=== PATIENT | male | born 1950 | race Asian ===

== ENCOUNTER → 2018-10-03 08:57 | Outpatient (CLI) | payer MEDICARE, OTHER, SELFPAY ==
--- NOTE | 2018-10-03 | DI.US.S_ITS ---
PROCEDURE: US ABDOMEN LIMITED INDICATIONS: NONALCOHOLIC STEATOHEPATITIS TECHNIQUE: Real-time focused scanning was performed of the abdomen, with image documentation. COMPARISON: None. FINDINGS: Liver measures 13.8 in length. There is heterogeneous, coarse echotexture. Multiple hepatic cysts are seen in the left lobe measuring up to 8 x 7 x 6 mm although technically too small to characterize. Gallbladder surgically absent. No biliary ductal dilatation. The pancreas is not well seen sonographically due to shadowing bowel gas. IMPRESSION: Coarse echogenic liver suggesting diffuse hepatocellular disease/fatty infiltration. Please correlate with LFTs. Hepatic cysts. Status post cholecystectomy. Dictated by: Dion Peraza M.D. on 10/03/2018 at 10:16 Approved by: Dion Peraza M.D. on 10/03/2018 at 10:20
== END ==
PROVIDERS: PCP Naturopath; Visit Provider Naturopath
DX: K75.81 Nonalcoholic steatohepatitis (NASH) (principal); K76.89 Other specified diseases of liver; Z90.49 Acquired absence of other specified parts of digestive tract
CPT/HCPCS: 76705

== ENCOUNTER → 2019-03-20 10:52 | Outpatient (CLI) | payer MEDICARE, OTHER, SELFPAY ==
--- NOTE | 2019-03-20 | DI.MRI.S_ITS ---
PROCEDURE: MR LUMBAR SPINE WO CON INDICATIONS: Spondylolisthesis, lumbar region TECHNIQUE: Noncontrast sagittal T1 spin echo and T2 fast echo, sagittal STIR, axial T1 and T2 fast spin echo through the lumbar spine. In cases with scoliosis, additional coronal T2 fast spin echo may be performed. COMPARISON: None. FINDINGS: Image quality: Excellent. Alignment and Curvature: There is grade I L4 on L5 anterolisthesis. There is otherwise normal bony alignment. Bone Marrow: Marrow is of normal overall signal. No acute vertebral body compression fractures. Spinal Cord: Conus medullaris terminates at the T12 level. Visualized cord demonstrates normal signal and size. Paraspinous Soft Tissues: No paravertebral masses. L1-L2: Normal appearance. L2-L3: Normal appearance. L3-L4: Mild disc bulge. No canal stenosis. No foraminal stenosis. L4-L5: Mild anterolisthesis. Mild disc desiccation and height loss. Broad-based disc bulge. Moderate facet and ligamentum flavum hypertrophy. Moderate canal stenosis. Mild bilateral neuroforaminal narrowing. L5-S1: Normal appearance. IMPRESSION: 1. Mild disc desiccation, anterolisthesis, and disc bulge at L4-5 with resultant moderate canal stenosis and mild foraminal stenosis. Dictated by: Lucia Dawson M.D. on 03/20/2019 at 13:50 Approved by: Lucia Dawson M.D. on 03/20/2019 at 14:04
== END ==
PROVIDERS: PCP Naturopath; Visit Provider Orthopaedic Surgery Orthopaedic Surgery of the Spine
DX: M43.16 Spondylolisthesis, lumbar region (principal); M51.26 Other intervertebral disc displacement, lumbar region; M48.061 Spinal stenosis, lumbar region without neurogenic claudication
CPT/HCPCS: 72148

== ENCOUNTER → 2019-12-08 10:34 | Outpatient (CLI) | payer MEDICARE, OTHER, SELFPAY ==
--- NOTE | 2019-12-08 | DI.US.S_ITS ---
PROCEDURE: US ABDOMEN COMPLETE INDICATIONS: CIRRHOSIS TECHNIQUE: Real-time scanning was performed of the abdominal and retroperitoneal organs, with image documentation. COMPARISON: [facility], , US ABDOMEN LIMITED, 10/03/2018, 9:28. FINDINGS: Liver: The liver demonstrates normal size. The liver demonstrates generalized increased echogenicity, with generalized heterogeneity. This decreases ultrasound sensitivity for detection of hepatic masses. The main portal vein measures 1.2 cm and is patent. There is a 9 mm cyst seen on the left. The previously seen liver cysts elsewhere are not visible on the current study. Gallbladder: Removed. Biliary ducts: Intrahepatic bile ducts are non-dilated. Extrahepatic bile duct caliber measures 4-5 mm. Normal is 6-7 mm or less in diameter, or 10 mm or less post-cholecystectomy. Pancreas: Visualized portions of the pancreas are sonographically normal. Spleen: Spleen is normal in size and homogeneous in echotexture. Kidneys: Kidneys are normal in size and echotexture. Right kidney measures 10.5 cm long; left kidney measures 11.2 cm long. No hydronephrosis or nephrolithiasis. No solid masses. There is a simple cyst seen on the right inferiorly that measures up to 1.7 cm. Aorta: Visualized aorta is normal in caliber at less than 3 cm. Iliacs: Proximal common iliac arteries are normal in caliber at less than 2.5 cm. IVC: Intrahepatic inferior vena cava is patent. Miscellaneous: No free abdominal fluid. IMPRESSION: Heterogeneous liver with increased echogenicity, which is consistent with the given clinical history of cirrhosis. If it would be helpful for clinical management decision making, please consider a dedicated liver MRI for further evaluation (assuming that there is no contraindication). Dictated by: Edgar Lopez M.D. on 12/08/2019 at 12:19 Approved by: Edgar Lopez M.D. on 12/08/2019 at 12:21
== END ==
PROVIDERS: PCP Naturopath; Referring Provider Naturopath; Visit Provider Internal Medicine Gastroenterology
DX: K74.69 Other cirrhosis of liver (principal); R74.8 Abnormal levels of other serum enzymes; N28.1 Cyst of kidney, acquired; R94.5 Abnormal results of liver function studies; Z90.49 Acquired absence of other specified parts of digestive tract
CPT/HCPCS: 76700

== ENCOUNTER 2021-10-17 08:23 | Observation (INO) | payer MEDICARE, OTHER, SELFPAY ==
[2021-10-17] VITALS (11 sets, daily range): BP systolic 111–140; BP diastolic 47–90; PULSE 60–109; RESP 16–24; TEMP 36.4–37.1; O2SAT 93–100; BMI 23.3; BMI 22.9
--- NOTE | 2021-10-17 08:37 | DI.RAD.S_ITS ---
PROCEDURE: XR CHEST 1V INDICATIONS: chest pain TECHNIQUE: One view of the chest was acquired. COMPARISON: None. FINDINGS: Surgical changes and devices: None. Lungs and pleura: Lungs are clear. No pleural effusions or pneumothorax. Mediastinum: Aortic arch calcifications are seen. Heart size is mildly enlarged. Bones and chest wall: No suspicious bony lesions. Overlying soft tissues appear unremarkable. IMPRESSION: No focal infiltrate, pleural effusion or pneumothorax. Dictated by: Marquise Childs M.D. on 10/17/2021 at 9:00 Approved by: Marquise Childs M.D. on 10/17/2021 at 9:03
[2021-10-17 09:31] LABS: Add Manual Diff / Slide Review NO; Basophils Absolute Auto 100 /uL (0-100); Basophils Percent Auto 0.8 % (0-2); Eosinophils Absolute Auto 100 /uL (0-450); Hematocrit 29.9 % (41-53); Hemoglobin 9.9 g/dL (13.5-17.5); Lymphocytes Absolute Auto 700 /uL (1100-4500); Lymphocytes Percent Auto 9.9 % (25-40); Mean Corpuscular HGB Conc 33.2 % (30-36); Mean Corpuscular Hemoglobin 31.1 PG (26-34); Mean Corpuscular Volume 93.5 fL (80-100); Monocytes Absolute Auto 400 /uL (0-900); Neutrophils Absolute Auto 5400 /uL (1500-7000); Neutrophils Percent Auto 81.3 % (50-75); Platelet Count 60 X10^3/uL (150-400); Red Blood Cell Count 3.19 X10^6/uL (4.5-5.9); Red Cell Distribution Width 17.4 % (11.6-14.8); White Blood Cell Count 6.7 X10^3/uL (4.5-11.0)
[2021-10-17] MEDS: ONDANSETRON 4 MG/2 ML INJ IV (09:37)
[2021-10-17] MEDS: SODIUM CHLORIDE 0.9% 1,000 ML 1000 ML IV (09:37)
[2021-10-17] MEDS: PANTOPRAZOLE 40 MG VIAL 80 MG IV (09:38)
[2021-10-17 09:54] LABS: Alanine Aminotransferase 35 IU/L (<50); Albumin 3.1 g/dL (3.5-5.0); Albumin Globulin Ratio 0.9 (1.0-2.8); Alkaline Phosphatase 204 U/L (38-126); Aspartate Aminotransferase 41 IU/L (17-59); BUN Creatinine Ratio 30.8 (6-22); Bilirubin Total 0.8 mg/dL (0.2-1.3); Blood Urea Nitrogen 36 mg/dL (9-20); Calcium 8.9 mg/dL (8.4-10.2); Carbon Dioxide 28 mmol/L (22-32); Chloride 107 mmol/L (98-107); Creatine Kinase 57 U/L (55-170); Estimated Glomerular Filt Rate > 60 mL/min (>60); Globulin 3.6 g/dL (1.7-4.1); Glucose 108 mg/dL (80-110); HEMOLYSIS < 15 (0-50); Lipase 291 U/L (23-300); Potassium 5.2 mmol/L (3.4-5.1); Sodium 138 mmol/L (137-145); Total Protein 6.7 g/dL (6.3-8.2)
[2021-10-17 10:05] LABS: Troponin I < 0.012 ng/mL (0.01-0.034)
[2021-10-17 10:11] LABS: COVID19 -Nasal RAPID Negative (Negative)
--- NOTE | 2021-10-17 10:52 | ED_ITS ---
HPI - General Adult General Chief complaint: Dizziness Stated complaint: Dizzy, bloody stool, hx of GI bleeds Time Seen by Provider: 10/17/21 08:27 Source: patient Mode of arrival: Family Vehicle History of Present Illness HPI narrative: 71-year-old gentleman with a prior history of a duodenal bleeding at least 7 or 8 times in the past most recently in 2018 with endoscopy that was unremarkable at that time. Additional problems include hypertension and hyperlipidemia. Notes that he has been increasingly lightheaded over the last number of days and this morning was significant enough that he had a near syncopal episode when he went to have a bowel movement. He describes no abdominal pain or vomiting but he notes his bowel movement was black this morning. He is having no additional pain. This has been his presentation with prior upper GI bleeds. He notes that he has not taken any new medications is not using nonsteroidals. He has no complaints of dyspnea, orthopnea, chest pain, headache, lower extremity edema, palpitations. Related Data Home Medications Medication Instructions Recorded Confirmed carvedilol phosphate 40 mg 40 mg PO QDAY ##0 03/27/17 10/17/21 capsule,[id number] multiphase (Coreg CR) pantoprazole 40 mg granules 40 mg PO BID ##0 03/27/17 10/17/21 delayed-release for susp in packet (Protonix) pravastatin 40 mg tablet 40 mg PO HS ##0 03/27/17 10/17/21 (Pravachol) spironolactone 25 mg tablet 25 mg PO 3XW ##0 03/27/17 10/17/21 (Aldactone) losartan 50 mg tablet 50 mg PO BID 07/21/20 10/17/21 Previous Rx's Medication Instructions Recorded alfuzosin 10 mg tablet,extended 10 mg PO DAILY #90 tabs 07/21/20 release 24 hr (Uroxatral) Allergies Allergy/AdvReac Type Severity Reaction Status Date / Time quinapril [QUINAPRIL] Allergy Unknown Verified 10/17/21 08:45 Review of Systems Review of Systems Narrative: Remainder of complete review of systems is otherwise unremarkable except for that included in the HPI. Patient History Medical History BPH w urinary obs/LUTS Erectile dysfunction Hyperlipidemia Hypertension Upper GI bleed Surgical History History of back surgery History of cholecystectomy History of tonsillectomy Family History Father Hypertension Hyperlipidemia Social History household members: spouse Smoking Status: Never smoker alcohol intake: never Smoking Status: Never smoker alcohol intake frequency: 0-2 drinks per day Substance Use Type: does not use Exam Initial Vital Signs Initial Vital Signs: Vital Signs Temperature 97.6 F 10/17/21 08:38 Pulse Rate 89 10/17/21 08:38 Respiratory Rate 19 10/17/21 08:38 Blood Pressure 129/64 10/17/21 08:38 Pulse Oximetry 99 10/17/21 08:38 Oxygen Delivery Method 10/17/21 08:38 General: Healthy appearing, in no acute distress. Able to give a complete and coherent history. Well-nourished well-developed HEENT: Moist mucous membranes, normal sclera with reactive pupils, Neck: No JVD, supple Respiratory: Lungs are clear to auscultation, no wheezing no rales no rhonchi. Full and symmetrical air movement Cardiac: Regular rate and rhythm no murmurs no bruits Abdomen: Soft, mild epigastric tenderness without rebound or guarding, good bowel tones, no flank pain Skin: Warm and dry, no rashes Neurologic: Grossly neurologically intact with no obvious asymmetries or abnormalities Extremities: No trauma, well perfused Psych: Cooperative, appropriate insight and affect Course Orders Ordered: ED Orders 10/17/21 12:11 Consult to General Surgery Stat 10/17/21 12:44 Hemoglobin and Hematocrit Stat 10/18/21 05:00 Basic Metabolic Panel Routine Complete Blood Count AUTO DIFF Routine Acetaminophen (Acetaminophen 325 Mg Tablet) 650 mg PO Q6HR PRN PRN Reason: Fever/Mild Pain (1-3) Alfuzosin [Uroxatral ] 10 Mg Tablet Extended Release 24 Hr 10 mg PO DAILY KIYA Ondansetron HCl (Ondansetron 4 Mg/2 Ml Inj) 4 mg IV Q8HR PRN PRN Reason: Nausea And Vomiting Pantoprazole Sodium (Pantoprazole 40 Mg Vial) 40 mg IV BID KIYA Sodium Chloride (Sodium Chloride 0.9% Flush) 10 ml IV PRN PRN PRN Reason: Flush Sodium Chloride (Sodium Chloride 0.9% Flush) 10 ml IV BID KIYA Discontinued Medications Sodium Chloride (Normal Saline 0.9%) 1,000 mls @ 1,000 mls/hr IV BOLUS ONE Stop: 10/17/21 10:30 Last Infusion: 10/17/21 11:22 Dose: 0 mls/hr Documented By: Admin: 10/17/21 09:37 Dose: 1,000 mls/hr Documented By: NR Ondansetron HCl (Ondansetron 4 Mg/2 Ml Inj) 4 mg IV NOW ONE Stop: 10/17/21 09:32 Last Admin: 10/17/21 09:37 Dose: 4 mg Documented By: NR Pantoprazole Sodium (Pantoprazole 40 Mg Vial) 80 mg IV NOW ONE Stop: 10/17/21 09:32 Last Admin: 10/17/21 09:38 Dose: 80 mg Documented By: NR Vital Signs Vital signs: Vital Signs - 8 hr 10/17/21 11:22 10/17/21 11:30 10/17/21 11:31 Pulse Rate 89 94 H Respiratory Rate 18 24 Blood Pressure 140/67 Pulse Oximetry 100 93 10/17/21 11:31 10/17/21 12:00 10/17/21 12:01 Pulse Rate 90 84 Respiratory Rate 19 18 Blood Pressure 122/53 L Pulse Oximetry 100 100 10/17/21 12:01 10/17/21 12:30 10/17/21 12:30 Pulse Rate 86 87 Respiratory Rate 19 18 Blood Pressure 111/61 Pulse Oximetry 100 100 Medical Decision Making Lab Data Result diagrams: 10/17/21 18:00 10/17/21 09:21 Labs: Lab Results 10/17/21 10/17/21 10/17/21 Range/Units 09:21 09:21 09:21 WBC 6.7 (4.5-11.0) X10^3/uL RBC 3.19 L (4.5-5.9) X10^6/uL Hgb 9.9 L (13.5-17.5) g/dL Hct 29.9 L (41-53) % MCV 93.5 (80-100) fL MCH 31.1 (26-34) PG MCHC 33.2 (30-36) % RDW 17.4 H (11.6-14.8) % Plt Count 60 L (150-400) X10^3/uL Neut % (Auto) 81.3 H (50-75) % Lymph % (Auto) 9.9 L (25-40) % [place] % (Auto) 6.0 (3-14) % Eos % (Auto) 2.0 (2-4) % Baso % (Auto) 0.8 (0-2) % Neut # (Auto) 5400 (3630-6633) /uL Lymph # (Auto) 700 L (2844-8163) /uL [place] # (Auto) 400 (0-900) /uL Eos # (Auto) 100 (0-450) /uL Baso # (Auto) 100 (0-100) /uL Sodium 138 (137-145) mmol/L Potassium 5.2 H (3.4-5.1) mmol/L Chloride 107 (98-107) mmol/L Carbon Dioxide 28 (22-32) mmol/L BUN 36 H (9-20) mg/dL Creatinine 1.17 (0.66-1.25) mg/dL Estimated GFR > 60 (>60) mL/min BUN/Creatinine Ratio 30.8 H (6-22) Glucose 108 (80-110) mg/dL Calcium 8.9 (8.4-10.2) mg/dL Magnesium 2.0 (1.6-2.3) mg/dL Total Bilirubin 0.8 (0.2-1.3) mg/dL AST 41 (17-59) IU/L ALT 35 (<50) IU/L Alkaline Phosphatase 204 H (38-126) U/L Total Creatine Kinase 57 (55-170) U/L CK-MB (CK-2) TNP CK-MB (CK-2) Rel Index TNP Troponin I < 0.012 (0.01-0.034) ng/mL Total Protein 6.7 (6.3-8.2) g/dL Albumin 3.1 L (3.5-5.0) g/dL Globulin 3.6 (1.7-4.1) g/dL Albumin/Globulin Ratio 0.9 L (1.0-2.8) Lipase 291 (23-300) U/L Urine RBC (0-5/HPF) Urine WBC (0-5/HPF) Ur Squamous Epith Cells (0-5/HPF) Urine Bacteria (None) Ur Culture Indicated? SARS-CoV-2 (PCR) (Negative) Blood Type O Positive Antibody Screen Negative 10/17/21 10/17/21 Range/Units 09:21 11:30 WBC (4.5-11.0) X10^3/uL RBC (4.5-5.9) X10^6/uL Hgb (13.5-17.5) g/dL Hct (41-53) % MCV (80-100) fL MCH (26-34) PG MCHC (30-36) % RDW (11.6-14.8) % Plt Count (150-400) X10^3/uL Neut % (Auto) (50-75) % Lymph % (Auto) (25-40) % [place] % (Auto) (3-14) % Eos % (Auto) (2-4) % Baso % (Auto) (0-2) % Neut # (Auto) (8183-3189) /uL Lymph # (Auto) (2823-8110) /uL [place] # (Auto) (0-900) /uL Eos # (Auto) (0-450) /uL Baso # (Auto) (0-100) /uL Sodium (137-145) mmol/L Potassium (3.4-5.1) mmol/L Chloride (98-107) mmol/L Carbon Dioxide (22-32) mmol/L BUN (9-20) mg/dL Creatinine (0.66-1.25) mg/dL Estimated GFR (>60) mL/min BUN/Creatinine Ratio (6-22) Glucose (80-110) mg/dL Calcium (8.4-10.2) mg/dL Magnesium (1.6-2.3) mg/dL Total Bilirubin (0.2-1.3) mg/dL AST (17-59) IU/L ALT (<50) IU/L Alkaline Phosphatase (38-126) U/L Total Creatine Kinase (55-170) U/L CK-MB (CK-2) CK-MB (CK-2) Rel Index Troponin I (0.01-0.034) ng/mL Total Protein (6.3-8.2) g/dL Albumin (3.5-5.0) g/dL Globulin (1.7-4.1) g/dL Albumin/Globulin Ratio (1.0-2.8) Lipase (23-300) U/L Urine RBC 5-10/hpf H (0-5/HPF) Urine WBC 10-30/hpf H (0-5/HPF) Ur Squamous Epith Cells 0-1 /hpf (0-5/HPF) Urine Bacteria Few (2-10) H (None) Ur Culture Indicated? Specimen cultured SARS-CoV-2 (PCR) Negative (Negative) Blood Type Antibody Screen Urine Dip Bedside Urine Glucose Negative Bedside Urine Bilirubin - Negative Bedside Urine Ketone - Negative Urine Specific [place] 1.015 Bedside Urine Occult Blood +++ Bedside Urine pH 6.0 Bedside Urine Protein - Negative Bedside Urine Urobilinogen - Negative Bedside Urine Nitrite - Negative Bedside Urine Leukocytes - Negative Esterase Point of care testing: Urine Dip Bedside Urine Glucose Negative Bedside Urine Bilirubin - Negative Bedside Urine Ketone - Negative Urine Specific [place] 1.015 Bedside Urine Occult Blood +++ Bedside Urine pH 6.0 Bedside Urine Protein - Negative Bedside Urine Urobilinogen - Negative Bedside Urine Nitrite - Negative Bedside Urine Leukocytes - Negative Esterase ECG Data Interpretation: Sinus rhythm at 94 with frequent PVCs Left bundle branch block MDM Narrative Medical decision making narrative: 71-year-old gentleman with prior history of upper GI bleeding currently on proton pump inhibitor and history of thrombocytopenia presents with black stools and increasing dizziness. Outside lab on October 10 shows an H&H of 11.9 and 35.8 with platelets of 62. Creatinine was 1.1. Today's H&H is 9.9 in 29.9 consistent with his complaints of presumed upper GI bleeding with black stool appreciated this morning. Platelet count is 60. He is not otherwise anticoagulated. Will review care with General surgery and plan on admission to the hospitalist service for upper GI bleed and need for probable endoscopy and possible blood transfusion. He is feeling significantly improved after L of fluid. Care is reviewed with hospitalist and patient will be admitted for further care and evaluation Discharge Plan Departure Patient Disposition: Admitted As Inpatient Clinical Impression: Acute upper gastrointestinal bleeding, Near syncope, ABLA (acute blood loss anemia) Admit Date/Time: 10/17/21 12:31 Admit Provider: Real Reagan
[2021-10-17 12:56] LABS: Hematocrit 26.7 % (41-53); Hemoglobin 8.9 g/dL (13.5-17.5)
[2021-10-17 13:45] LABS: Bacteria Urine Few (2-10); Culture Indicated Urine Specimen Cultured; RBC Urine 5-10/HPF (0-5/HPF); Squamous Epithelial Cell Urine 0-1 /HPF (0-5/HPF); WBC Urine 10-30/HPF (0-5/HPF)
--- NOTE | 2021-10-17 18:20 | PM.HP.1 ---
History of Present Illness History of Present Illness Date Patient Seen: 10/17/21 Time Patient Seen: 18:00 Chief complaint: Dizzy, bloody stool, hx of GI bleeds Narrative: Mr. Sultana is a 71M with PMH duodenal bleeding multiple times s/p cautery, possibly from [place]ul[place] lesion, HTN, HL, cardiomyopathy, BPH who presents with lightheaded. He states he has been lightheaded for a few days, and he almost passed out after a bowel movement. He has had some stomach cramping. He has noticed dark black stools. No bright bleed blood per rectum, no hematemesis. No significant alcohol use. His last EGD was in 2018. He has no chest pain or shortness of breath. In the ED workup was done, vitals were unremarkable. Labs notable for WBC 6.7, hgb 9.9, plts 60. K 5.2 creatinine 1.17. Labs from previous draw per ED on 10/10 showed hgb of 11.9. He was ordered for IV fluids and IV protonix and felt improved. He was admitted for further treatment. Patient History Medical History BPH w urinary obs/LUTS Erectile dysfunction Hyperlipidemia Hypertension Upper GI bleed Surgical History History of back surgery History of cholecystectomy History of tonsillectomy Family & Social History Family History Father Hypertension Hyperlipidemia Social History: household members spouse Prior Living Arrangements House Safety & Behavioral: Feels Safe in Current Yes Environment Been Physically Hurt or No Threatened By a Person Tobacco & Substance use: Smoking Status Never smoker alcohol intake never alcohol intake frequency 0-2 drinks per day Substance Use Type does not use Meds Home Medications and Allergies Home Medications Medication Instructions Recorded Confirmed Type carvedilol phosphate 40 mg 40 mg PO QDAY ##0 03/27/17 10/17/21 History capsule,[id number] multiphase (Coreg CR) pantoprazole 40 mg granules 40 mg PO BID ##0 03/27/17 10/17/21 History delayed-release for susp in packet (Protonix) pravastatin 40 mg tablet 40 mg PO HS ##0 03/27/17 10/17/21 History (Pravachol) spironolactone 25 mg tablet 25 mg PO 3XW ##0 03/27/17 10/17/21 History (Aldactone) alfuzosin 10 mg tablet,extended 10 mg PO DAILY #90 tabs 07/21/20 10/17/21 Rx release 24 hr (Uroxatral) losartan 50 mg tablet 50 mg PO BID 07/21/20 10/17/21 History Allergies Allergy/AdvReac Type Severity Reaction Status Date / Time quinapril [QUINAPRIL] Allergy Unknown Verified 10/17/21 08:45 Review of Systems Review of Systems Narrative: 14 review of systems performed and negative aside from what is noted in HPI Exam Vital Signs (past 8 hours): - 10/17/21 11:22 10/17/21 11:30 10/17/21 11:31 Temperature Pulse Rate 89 94 H Respiratory Rate 18 24 Blood Pressure 140/67 Pulse Oximetry 100 93 10/17/21 11:31 10/17/21 12:00 10/17/21 12:01 Temperature Pulse Rate 90 84 Respiratory Rate 19 18 Blood Pressure 122/53 L Pulse Oximetry 100 100 10/17/21 12:01 10/17/21 12:30 10/17/21 12:30 Temperature Pulse Rate 86 87 Respiratory Rate 19 18 Blood Pressure 111/61 Pulse Oximetry 100 100 10/17/21 14:01 Temperature 97.7 F Pulse Rate 60 Respiratory Rate 16 Blood Pressure 120/47 L Pulse Oximetry 100 Oxygen Delivery Method Room Air Narrative Exam Narrative: GEN: no acute distress HEENT: moist mucous membranes, PERRL NECK: trachea midline, no JVD CV: regular rate and rhythm, no murmurs PULM: clear bilaterally, no wheezes, rhonchi, rales ABD: soft, nontender, nondistended, no organomegaly EXT: warm and well perfused with no edema NEURO: awake, alert, oriented, with no focal deficits Objective Labs Result Diagrams: 10/17/21 12:44 10/17/21 09:21 Labs: Laboratory Results - last 24 hr 10/17/21 10/17/21 10/17/21 09:21 09:21 09:21 WBC 6.7 RBC 3.19 L Hgb 9.9 L Hct 29.9 L MCV 93.5 MCH 31.1 MCHC 33.2 RDW 17.4 H Plt Count 60 L Neut % (Auto) 81.3 H Lymph % (Auto) 9.9 L [place] % (Auto) 6.0 Eos % (Auto) 2.0 Baso % (Auto) 0.8 Neut # (Auto) 5400 Lymph # (Auto) 700 L [place] # (Auto) 400 Eos # (Auto) 100 Baso # (Auto) 100 Sodium 138 Potassium 5.2 H Chloride 107 Carbon Dioxide 28 BUN 36 H Creatinine 1.17 Estimated GFR > 60 BUN/Creatinine Ratio 30.8 H Glucose 108 Calcium 8.9 Magnesium 2.0 Total Bilirubin 0.8 AST 41 ALT 35 Alkaline Phosphatase 204 H Total Creatine Kinase 57 CK-MB (CK-2) TNP CK-MB (CK-2) Rel Index TNP Troponin I < 0.012 Total Protein 6.7 Albumin 3.1 L Globulin 3.6 Albumin/Globulin Ratio 0.9 L Lipase 291 Urine RBC Urine WBC Ur Squamous Epith Cells Urine Bacteria Ur Culture Indicated? SARS-CoV-2 (PCR) Blood Type O Positive Antibody Screen Negative 10/17/21 10/17/21 10/17/21 09:21 11:30 12:44 WBC RBC Hgb 8.9 L Hct 26.7 L MCV MCH MCHC RDW Plt Count Neut % (Auto) Lymph % (Auto) [place] % (Auto) Eos % (Auto) Baso % (Auto) Neut # (Auto) Lymph # (Auto) [place] # (Auto) Eos # (Auto) Baso # (Auto) Sodium Potassium Chloride Carbon Dioxide BUN Creatinine Estimated GFR BUN/Creatinine Ratio Glucose Calcium Magnesium Total Bilirubin AST ALT Alkaline Phosphatase Total Creatine Kinase CK-MB (CK-2) CK-MB (CK-2) Rel Index Troponin I Total Protein Albumin Globulin Albumin/Globulin Ratio Lipase Urine RBC 5-10/hpf H Urine WBC 10-30/hpf H Ur Squamous Epith Cells 0-1 /hpf Urine Bacteria Few (2-10) H Ur Culture Indicated? Specimen cultured SARS-CoV-2 (PCR) Negative Blood Type Antibody Screen Assessment & Plan Assessment & Plan narrative: Mr. Sultana is a 71M with multiple previous duodenal bleeds who presents with lightheadedness, melena and acute blood loss. 1. Acute blood loss anemia for upper GI bleed -suspect recurrence of duodenal bleeding -keep NPO at midnight -patient type and crossed -transfuse hgb <8 or significant symptoms -repeat hemoglobin now -IV protonix BID -surgery consulted for plan for EGD tomorrow 2. Cardiomyopathy with hypertension -given GI bleed will hold antihypertensives tonight 3. BPH -continue alfuzosin 4. Thrombocytopenia -chronic, etiology not clear -follow up as outpatient -if drops below 50, transfuse platelets if bleeding continues CODE: DNR Proxy: Mary Sultana, I have utilized all available resources to reconcile the patient's home medications Time Spent With Patient Critical Care time: I spent a total of [] minutes of critical care time on this patient's care today; this time is exclusive of procedural time. Quality VTE Deep Vein Thrombosis/Pulmonary Embolism Present on Admission: No
[2021-10-17 18:31] LABS: Hematocrit 26.9 % (41-53); Hemoglobin 9.1 g/dL (13.5-17.5); Mean Corpuscular HGB Conc 33.8 % (30-36); Mean Corpuscular Hemoglobin 31.5 PG (26-34); Mean Corpuscular Volume 93.3 fL (80-100); Platelet Count 69 X10^3/uL (150-400); Red Blood Cell Count 2.89 X10^6/uL (4.5-5.9); Red Cell Distribution Width 17.3 % (11.6-14.8); White Blood Cell Count 7.5 X10^3/uL (4.5-11.0)
[2021-10-17] MEDS: SODIUM CHLORIDE 0.9% FLUSH 10 ML IV (20:45)
[2021-10-17] MEDS: PANTOPRAZOLE 40 MG VIAL IV (20:45)
[2021-10-18] VITALS (13 sets, daily range): BP systolic 80–125; BP diastolic 53–80; PULSE 76–93; RESP 12–19; TEMP 36.4–37.1; O2SAT 82–100; BMI 23.3
--- NOTE | 2021-10-18 | PATH_ITS ---
[facility] Accession Number: [id number] . 01 Material submitted: . duodenum - DUODENAL BX . 01 Clinical history: . DIZZY, BLOODY STOOL, HX OF GI BLEEDS . 01 Diagnosis: Duodenum, Biopsy: Duodenal mucosa with no diagnostic abnormality. Negative for active inflammation, features of sprue, dysplasia, or malignancy. . MRV 10/20/2021 1400 Local . 01 Electronically signed: . Jack Morrow MD, PhD, Pathologist NPI- [id number] . 01 Gross description: . DUODENAL BX: Received in formalin is 1 fragment(s) of blankenship, soft tissue measuring 0.2 x 0.2 x 0.2 cm submitted entirely in 1 cassette(s) /NICOLE 10/19/2021 1855 Local . 01 Pathologist provided ICD-10: Z87.19 . 01 CPT . 742676 Performed at: 01 [facility] [address] [place] [address], [place], [place] [id number] MD Jackson Stone MD Phone: [phone]
[2021-10-18 05:41] LABS: Add Manual Diff / Slide Review NO; Basophils Absolute Auto 100 /uL (0-100); Basophils Percent Auto 1.1 % (0-2); Eosinophils Absolute Auto 200 /uL (0-450); Eosinophils Percent Auto 2.6 % (2-4); Hematocrit 24.9 % (41-53); Hemoglobin 8.3 g/dL (13.5-17.5); Lymphocytes Absolute Auto 1200 /uL (1100-4500); Mean Corpuscular HGB Conc 33.5 % (30-36); Mean Corpuscular Hemoglobin 31.4 PG (26-34); Mean Corpuscular Volume 93.6 fL (80-100); Monocytes Absolute Auto 700 /uL (0-900); Neutrophils Absolute Auto 5100 /uL (1500-7000); Neutrophils Percent Auto 70.3 % (50-75); Platelet Count 70 X10^3/uL (150-400); Red Blood Cell Count 2.66 X10^6/uL (4.5-5.9); Red Cell Distribution Width 17.2 % (11.6-14.8); White Blood Cell Count 7.2 X10^3/uL (4.5-11.0)
[2021-10-18 05:42] LABS: BUN Creatinine Ratio 30.1 (6-22); Blood Urea Nitrogen 34 mg/dL (9-20); Calcium 8.4 mg/dL (8.4-10.2); Carbon Dioxide 26 mmol/L (22-32); Chloride 108 mmol/L (98-107); Estimated Glomerular Filt Rate > 60 mL/min (>60); Glucose 93 mg/dL (80-110); HEMOLYSIS < 15 (0-50); Potassium 4.5 mmol/L (3.4-5.1); Sodium 138 mmol/L (137-145)
[2021-10-18] MEDS: PANTOPRAZOLE 40 MG VIAL IV (08:25)
[2021-10-18] MEDS: SODIUM CHLORIDE 0.9% FLUSH 10 ML IV (08:25)
--- NOTE | 2021-10-18 11:41 | CM.DANOTE ---
DCP: Case received, EMR reviewed and met with patient. Spouse, Mary, was at bedside. Introduced self and role. Was able to obtain information regarding patient's baseline activity status prior to hospitalization. DCP assessment completed with information currently available. Patient is a 71 year old male who admitted yesterday afternoon to the care of the hospitalist team. PCP: Dr. Mancera. Payer: confirmed: Medicare/[employer]. Patient came to the hospital via private vehicle secondary to having dark stools. According to notes, patient has history of GI bleeds. In 2018, patient had duodenal bleeding at least 7-8 times. Patient is here for acute blood loss anemia for upper GI bleed. He is scheduled for EGD today. Met with patient in his room. He is alert and oriented, spouse was in the room, patient was laying in bed, currently NPO for procedure. Confirmed that patient resides with spouse here in [place]. Patient is independent at his baseline. P: DCP to continue to follow. Plan is for patient to go home when he is deemed medically stable. Cindi Buck RN/Tool Filer Hand Discharge Planning/Care Management CM Discharge Assessment Start: 10/18/21 11:36 Freq: Status: Active Protocol: Document 10/18/21 11:37 (Rec: 10/18/21 11:40 [id number]) Discharge Planning Assessment Advance Directives? No History Provided By Patient,Medical Record Prior Living Arrangements House Household Members spouse Type of transporation used prior to Drives own vehicle admit Independent with ADL's Yes Is patient alert and oriented? Yes Caregiver for Another No Barriers to Discharge No Discharge Plan Home Transportation Arrangement Spouse Referrals Initiated None needed Whiteboard Updated in Patient Room with Yes name and ext. # of Burn Crew Member Review Status In Process Next Review Type Continued Stay Review
[2021-10-18] MEDS: LACTATED RINGERS 1,000 ML 42 ML IV (12:45)
--- NOTE | 2021-10-18 13:27 | PM.CN ---
History of Present Illness Consult details Date Patient Seen: 10/18/21 Time Patient Seen: 13:28 Chief complaint: Dizzy, bloody stool, hx of GI bleeds Reason for consult: dark stools Requesting provider: Laury Juárez Narrative: Nearly fainted yesterday. No BM since Saturday, but dark at that time. H/o duodenal ulcer on daily PPI. anemia on labs. Meds Home Medications and Allergies Home Medications Medication Instructions Recorded Confirmed Type carvedilol phosphate 40 mg 40 mg PO QDAY ##0 03/27/17 10/17/21 History capsule,[id number] multiphase (Coreg CR) pantoprazole 40 mg granules 40 mg PO BID ##0 03/27/17 10/17/21 History delayed-release for susp in packet (Protonix) pravastatin 40 mg tablet 40 mg PO HS ##0 03/27/17 10/17/21 History (Pravachol) spironolactone 25 mg tablet 25 mg PO 3XW ##0 03/27/17 10/17/21 History (Aldactone) alfuzosin 10 mg tablet,extended 10 mg PO DAILY #90 tabs 07/21/20 10/17/21 Rx release 24 hr (Uroxatral) losartan 50 mg tablet 50 mg PO BID 07/21/20 10/17/21 History Allergies Allergy/AdvReac Type Severity Reaction Status Date / Time quinapril [QUINAPRIL] Allergy Unknown Cough Verified 10/18/21 12:42 Review of Systems Review of Systems ROS: Yes All systems reviewed with the patient and are negative except as otherwise documented Exam Vital Signs (past 8 hours): - 10/18/21 07:37 10/18/21 08:28 10/18/21 11:58 Temperature 98.2 F 98.6 F Pulse Rate 89 93 H Respiratory Rate 18 17 Blood Pressure 101/54 L 112/65 Pulse Oximetry 97 100 100 Oxygen Delivery Method Room Air Oxygen Flow Rate 0 0 0 10/18/21 12:46 Temperature 98.0 F Pulse Rate 78 Respiratory Rate 16 Blood Pressure 125/80 Pulse Oximetry 99 Oxygen Delivery Method Room Air Oxygen Flow Rate Oxygen Delivery Method Room Air Oxygen Flow Rate 0 Const General: cooperative and healthy appearing Nutritional Appearance: average body habitus Orientation: alert, awake and oriented x3 HENMT Head: normal to inspection, normocephalic and atraumatic Face and sinus: normal facial exam Eyes General: appearance normal, both eyes and all related structures Sclera: sclerae normal Neck Neck: trachea midline Chest Chest: normal inspection of the chest Resp Effort & Inspection: normal respiratory effort Cardio Rate: regular rate Rhythm: regular rhythm GI Inspection: normal to inspection Skin General: no rashes or lesions noted Neuro General: patient alert, patient awake and patient oriented x3 Extrem General: normal to inspection Psych Appearance: grossly normal and well kempt Judgment: judgment good Objective Labs Result Diagrams: 10/18/21 05:06 10/18/21 05:06 Labs: Laboratory Results - last 24 hr 10/17/21 10/17/21 10/18/21 11:30 18:00 05:06 WBC 7.5 7.2 RBC 2.89 L 2.66 L Hgb 9.1 L 8.3 L Hct 26.9 L 24.9 L MCV 93.3 93.6 MCH 31.5 31.4 MCHC 33.8 33.5 RDW 17.3 H 17.2 H Plt Count 69 L 70 L Neut % (Auto) 70.3 Lymph % (Auto) 17.0 L [place] % (Auto) 9.0 Eos % (Auto) 2.6 Baso % (Auto) 1.1 Neut # (Auto) 5100 Lymph # (Auto) 1200 [place] # (Auto) 700 Eos # (Auto) 200 Baso # (Auto) 100 Sodium Potassium Chloride Carbon Dioxide BUN Creatinine Estimated GFR BUN/Creatinine Ratio Glucose Calcium Urine RBC 5-10/hpf H Urine WBC 10-30/hpf H Ur Squamous Epith Cells 0-1 /hpf Urine Bacteria Few (2-10) H Ur Culture Indicated? Specimen cultured 10/18/21 05:06 WBC RBC Hgb Hct MCV MCH MCHC RDW Plt Count Neut % (Auto) Lymph % (Auto) [place] % (Auto) Eos % (Auto) Baso % (Auto) Neut # (Auto) Lymph # (Auto) [place] # (Auto) Eos # (Auto) Baso # (Auto) Sodium 138 Potassium 4.5 Chloride 108 H Carbon Dioxide 26 BUN 34 H Creatinine 1.13 Estimated GFR > 60 BUN/Creatinine Ratio 30.1 H Glucose 93 Calcium 8.4 Urine RBC Urine WBC Ur Squamous Epith Cells Urine Bacteria Ur Culture Indicated? [facility] Medical History BPH w urinary obs/LUTS Erectile dysfunction Hyperlipidemia Hypertension Upper GI bleed Surgical History History of back surgery History of cholecystectomy History of tonsillectomy Family History Father Hypertension Hyperlipidemia Social History household members: spouse Tobacco & Substance Use Smoking Status: Never smoker alcohol intake: never Assessment & Plan Assessment & Plan narrative: Possible under treated for PUD. Slight anemia, but not significant enough to cause fainting. Doubt active bleeding due to the fact he has not had and BM in 3 days and takes his PPI daily. But due to h/o duodenal ulcers, agree with ruling out active ulcer to guide treatment. COVID-19 COVID-19 status: Negative Time Spent With Patient Time with patient: less than 30 minutes Critical Care time: I spent a total of [] minutes of critical care time on this patient's care today; this time is exclusive of procedural time.
--- NOTE | 2021-10-18 14:07 | PM.OP.EGD ---
Operative Date/Time/Diagnoses Date of procedure: 10/18/21 Time of procedure: 14:07 Pre-op diagnosis: GI bleed Post-op diagnosis: same Procedure & Clinicians Study performed: EGD with biopsy Same procedure as scheduled: Yes Indications: GI bleed and anemia Surgeon: Yessi Obando Procedure Notes SCOAP/Timeout: Done Procedure in detail: Preop diagnosis: Anemia, upper GI bleed Postop diagnosis: Same Operative procedure: EGD with biopsy Surgeon: MD Topher Anesthetic: Mac Findings: Duodenal stricture with associated polyp, no active bleeding. Mild inflammation at the stricture site. Biopsies taken of the polyp Procedure: Patient placed in a supine position. Scope inserted into the esophagus advanced to the stomach with insufflation identified the pylorus intubated and the duodenum. In the duodenum there was a stricture associated with a polyp of which I took biopsies of polyp and surrounding mucosa. No active bleeding. Mild erythema of the strictured area. Stomach and esophagus within normal limits. Small hiatal hernia. Impression: Duodenal stricture with mild enteritis and associated polyp. Gross appearance is benign. Normal stomach and esophagus. Small hiatal hernia Plan: Continue on b.i.d. proton pump inhibitor and await pathology Findings: other findings (Duodenal polyp in the 2nd portion associated with a duodenal stricture.) Specimen(s): other (A biopsy, cold forceps. Second portion duodenum) Complications: none Impression: Duodenal stricture from previous peptic ulcer disease with an associated polyp. No active bleeding. Mild inflammation Post-procedure Recommendations: EGD in 1 year Follow up: as needed Disposition: PACU
[2021-10-18 16:37] LABS: Hematocrit 24.1 % (41-53); Hemoglobin 8.2 g/dL (13.5-17.5)
--- NOTE | 2021-10-18 17:02 | P.DS_ITS ---
History of Present Illness History of Present Illness Date Patient Seen: 10/18/21 Chief complaint: Dizzy, bloody stool, hx of GI bleeds Narrative: Per Dr. Reagan, Mr. Sultana is a 71M with PMH duodenal bleeding multiple times s/p cautery, possibly from [place] lesion, HTN, HL, cardiomyopathy, BPH who presents with lightheaded. He states he has been lightheaded for a few days, and he almost passed out after a bowel movement. He has had some stomach cramping. He has noticed dark black stools. No bright bleed blood per rectum, no hematemesis. No significant alcohol use. His last EGD was in 2018. He has no chest pain or shortness of breath. In the ED workup was done, vitals were unremarkable. Labs notable for WBC 6.7, hgb 9.9, plts 60. K 5.2 creatinine 1.17. Labs from previous draw per ED on 10/10 showed hgb of 11.9. He was ordered for IV fluids and IV protonix and felt improved. He was admitted for further treatment. Discharge Providers Provider Date of admission: 10/17/21 12:31 Discharge Date: 10/18/21 Primary care physician: Qi Mancera ND Consults: 10/17/21 12:11 Consult to General Surgery Stat Comment: Consulting Provider: Yessi Obando Reason for consultation: gi bleed Has provider been notified: Yes Discharge provider: Fortino Canada DO Summary Hospital Course Discharge Diagnosis: 1. Acute blood loss anemia from probable upper GI bleed 2. Cardiomyopathy with hypertension 3. BPH 4. Thrombocytopenia Hospital Course: Mr. Sultana is a 71M with multiple previous duodenal bleeds who was admitted with a presumed upper GI bleed. H/h slowly downtrended over the course of his admission, but he had no further dark or bloody stools over the course of his admission. He underwent EGD which showed duodenal stricture, with mild erythema at the stricture site but no active bleeding. He no longer had symptoms including dizziness or shortness of breath. He was tolerating a diet without i ssue. Hg on the day of discharge was 8.3 and 8.2 11 hours apart. Patient was counseled on risks and benefits of further observation or discharge home. Patient elected for discharge home at this time. He was ordered for another CBC on 10/20 to follow up Hg trend as an outpatient, and was counseled on return symptoms. Given probable duodenal source and stricturing, sucralfate was added to his BID protonix at home. With PCP, please consider chronic maintenance therapy as well. Biopsies were taken and should be followed up with either PCP or surgery as an outpatient. Time Spent with Patient Time spent: Greater than 30 minutes Exam Vital Signs (past 8 hours): - 10/18/21 11:58 10/18/21 12:46 10/18/21 13:57 Temperature 98.6 F 98.0 F 98.0 F Pulse Rate 93 H 78 82 Respiratory Rate 17 16 16 Blood Pressure 112/65 125/80 82/57 L Pulse Oximetry 100 99 82 L Oxygen Delivery Method Room Air Room Air Oxygen Flow Rate 0 10/18/21 14:02 10/18/21 14:23 10/18/21 14:07 Temperature 98.7 F Pulse Rate 85 87 84 Respiratory Rate 16 16 17 Blood Pressure 80/53 L 94/58 L 92/56 L Pulse Oximetry 99 98 100 Oxygen Delivery Method Room Air Room Air Room Air Oxygen Flow Rate 10/18/21 14:12 10/18/21 14:35 10/18/21 15:49 Temperature 98.7 F 97.5 F L Pulse Rate 82 83 83 Respiratory Rate 19 16 16 Blood Pressure 93/61 111/58 L 113/69 Pulse Oximetry 98 100 100 Oxygen Delivery Method Room Air Oxygen Flow Rate 0 Oxygen Delivery Method Room Air Oxygen Flow Rate 0 Narrative Exam Narrative: GEN: no acute distress HEENT: moist mucous membranes, PERRL NECK: trachea midline, no JVD CV: regular rate and rhythm, no murmurs PULM: clear bilaterally, no wheezes, rhonchi, rales ABD: soft, nontender, nondistended, no organomegaly EXT: warm and well perfused with no edema NEURO: awake, alert, oriented, with no focal deficits Objective Labs Result Diagrams: 10/18/21 16:30 10/18/21 05:06 Labs: Laboratory Results - last 24 hr 10/17/21 10/18/21 10/18/21 18:00 05:06 05:06 WBC 7.5 7.2 RBC 2.89 L 2.66 L Hgb 9.1 L 8.3 L Hct 26.9 L 24.9 L MCV 93.3 93.6 MCH 31.5 31.4 MCHC 33.8 33.5 RDW 17.3 H 17.2 H Plt Count 69 L 70 L Neut % (Auto) 70.3 Lymph % (Auto) 17.0 L [place] % (Auto) 9.0 Eos % (Auto) 2.6 Baso % (Auto) 1.1 Neut # (Auto) 5100 Lymph # (Auto) 1200 [place] # (Auto) 700 Eos # (Auto) 200 Baso # (Auto) 100 Sodium 138 Potassium 4.5 Chloride 108 H Carbon Dioxide 26 BUN 34 H Creatinine 1.13 Estimated GFR > 60 BUN/Creatinine Ratio 30.1 H Glucose 93 Calcium 8.4 10/18/21 16:30 WBC RBC Hgb 8.2 L Hct 24.1 L MCV MCH MCHC RDW Plt Count Neut % (Auto) Lymph % (Auto) [place] % (Auto) Eos % (Auto) Baso % (Auto) Neut # (Auto) Lymph # (Auto) [place] # (Auto) Eos # (Auto) Baso # (Auto) Sodium Potassium Chloride Carbon Dioxide BUN Creatinine Estimated GFR BUN/Creatinine Ratio Glucose Calcium PFSH Medical History BPH w urinary obs/LUTS Erectile dysfunction Hyperlipidemia Hypertension Upper GI bleed Surgical History History of back surgery History of cholecystectomy History of tonsillectomy Family History Father Hypertension Hyperlipidemia Social History household members: spouse Smoking Status: Never smoker alcohol intake: never Discharge Plan Discharge Plan Patient Disposition: Home Provider Discharge Comment: You were admitted to the hospital with gastrointes tinal bleeding. Your EGD showed some narrowing but no active bleeding. You elected for discharge home at this time. Please obtain blood draw on 10/20 for repeat exam to see if there is worsening anemia. You should take your probitoic at least 2 hours after sucralfate. This medication is taken usually 4 times a day for 4 weeks, then twice daily after. Please follow up with your GI doctor and PCP for continued prescription. Discharge orders & Medications Prescriptions: New sucralfate 1 gram tablet 1 g PO QACHS 30 Days Qty: 120 0RF Continued carvedilol phosphate [Coreg CR] 40 MG capsule, ER multiphase 24 hr 40 mg PO QDAY Qty: 0 pravastatin [Pravachol] 40 MG tablet 40 mg PO HS Qty: 0 spironolactone [Aldactone] 25 MG tablet 25 mg PO 3XW Qty: 0 Rx Instructions: Saturday, saturday, saturday only pantoprazole [Protonix] [address] for susp in packet 40 mg PO BID Qty: 0 losartan 50 mg tablet 50 mg PO BID alfuzosin [Uroxatral] 10 mg tablet extended release 24 hr 10 mg PO DAILY Qty: 90 3RF Rx Instructions: administer after the same meal each day Follow up/Referrals: Qi Mancera ND [Primary Care Provider] - Other Ambulatory Orders: Complete Blood Count NO DIFF (Routine) Timeframe: 2 Days Facility: [facility] - Location: Laboratory Ordered By: Fortino [place] Diet/Activity/Treatments Diet: Diet as Tolerated Activity: As tolerated Visit Report/Discharge Packet Instructions: Duodenal Ulcer Stand Alone Forms: EGD Result: [place] Surg Discharge Data Primary Care Provider: Qi Mancera Quality VTE Deep Vein Thrombosis/Pulmonary Embolism Present on Admission: No
== END 2021-10-18 15:50 | disposition home or self-care (01) | DRG 812 ==
LOC: ED 12:08 → AC 12:51
PROVIDERS: Internal Medicine; Surgery; Admitting Provider Internal Medicine; Emergency Provider Emergency Medicine; PCP Naturopath; Referring Provider Emergency Medicine; Visit Provider Internal Medicine
PROC: 0DJ08ZZ Inspection of Upper Intestinal Tract, Via Natural or Artificial Opening Endoscopic (ICD-10-PCS; CPT 43235; principal; 2021-10-18 13:30)
DX: D62 Acute posthemorrhagic anemia (principal); K52.9 Noninfective gastroenteritis and colitis, unspecified; K44.9 Diaphragmatic hernia without obstruction or gangrene; K31.5 Obstruction of duodenum; I42.9 Cardiomyopathy, unspecified; K31.7 Polyp of stomach and duodenum; D69.6 Thrombocytopenia, unspecified; I10 Essential (primary) hypertension; N40.0 Benign prostatic hyperplasia without lower urinary tract symptoms; E78.5 Hyperlipidemia, unspecified; Z20.822 Contact with and (suspected) exposure to COVID-19; Z66 Do not resuscitate
CPT/HCPCS: 43239; 36415; 71045; 80048; 80053; 81003; 81015; 82550; 83690; 83735; 84484; 85014; 85018; 85025; 85027; 86850; 86900; 86901; 87086; 87635; 93005; 93010; 96374; 96375; 99224; 99284; C9803; G0378; C9113; J2250; J2405; J2704; J3010